=== PATIENT | male | born 1990 | race Two or more races ===

== ENCOUNTER 2019-03-12 20:07 | Emergency (ER) | payer MEDICAID ==
[~2019-03-12] VITALS: Ht 180.3 cm; Wt 65.8 kg
[~2019-03-12 20:07] MED LIST: NKM
[2019-03-12 20:20] VITALS: BP 122/54
--- NOTE | 2019-03-12 20:20 | NUR ---
ED Nurse Note: Patient brought in by [facility] c/o syncopal episde that ocured at 1930 today, patient states that he had completely passed out and fell, at time of arrival patient is alert and oriented x4 and is complaining of right sided pain but states that this is a chronic issue. no head trauma noted, states that hes had he will be getting surgery for the pain, patient sugar is 80. will wait for further orders
[2019-03-12] MEDS ORDERED: Ketorolac 60mg Inj IM ONE (21:00)
[2019-03-12] MEDS ORDERED: Methocarbamol 750mg tab ORAL ONE (21:00)
[2019-03-12] MEDS ORDERED: Dexamethasone 4mg/ml vial IM ONE (21:00)
[2019-03-12] MEDS ORDERED: Hydromorphone 0.5mg/0.5ml inj IM ONE (21:00)
[2019-03-12] MEDS ORDERED: HYDROcodone/Acetamin 5/325 tab ORAL ONE (21:00)
--- NOTE | 2019-03-12 21:15 | NUR ---
ED Nurse Note: Had to override patient's medication, 2 syringes of dilaudid were thrown away due to tabs being broken. LES Thomas witnessed.
[2019-03-12] MEDS ORDERED: Hydromorphone 0.5mg/0.5ml inj ONE (21:22)
--- NOTE | 2019-03-12 22:08 | Emergency Room Report ---
History of Present Illness General Chief Complaint: Syncope Source: Patient Present Illness HPI 28-year-old male presents with syncopal symptoms prior to arrival lasting minutes, with some quick resolution of consciousness, aggravated by pain in the back, alleviated by lying on the floor, severity was moderate lasting minutes, patient presents via EMS for evaluation he denies any head trauma Patient denies any bowel bladder retention/incontinence he states he has had chronic back pain is seeking relief. Allergies: Coded Allergies: No Known Allergies (Unverified , 03/12/19) Patient History Past Medical History: see triage record Reviewed Nursing Documentation: PMH: Agreed; PSxH: Agreed Nursing Documentation-PM Past Medical History: No History, Except For Review of Systems All Other Systems: negative except mentioned in HPI Physical Exam Vital Signs Date Time Temp Pulse Resp B/P (MAP) Pulse Ox O2 Delivery O2 Flow Rate FiO2 03/12/19 20:02 98.1 71 16 122/54 (76) 99 Room Air Sp02 EP Interpretation: reviewed, normal General Appearance: well appearing, no apparent distress, alert Head: normocephalic, atraumatic Eyes: bilateral eye PERRL, bilateral eye EOMI ENT: uvula midline, moist mucus membranes Neck: supple, thyroid normal, supple/symm/no masses Respiratory: lungs clear, no respiratory distress, no retraction, no accessory muscle use Cardiovascular #1: normal peripheral pulses, regular rate, rhythm, no edema, no gallop, no murmur Gastrointestinal: non tender, soft, no guarding, no rebound Musculoskeletal: normal inspection, other - No midline tenderness, tenderness to palpation right lower back laterally, spasm of the right muscle felt, straight leg raise positive Neurologic: alert, oriented x3 Psychiatric: mood/affect normal Skin: no rash, warm/dry Medical Decision Making Diagnostic Impression: Primary Impression: Syncope Qualified Codes: R55 - Syncope and collapse Additional Impression: Chronic back pain Qualified Codes: M54.41 - Lumbago with sciatica, right side; G89.29 - Other chronic pain ER Course 28-year-old male presents with right lower back pain most likely chronic, no red flags of back pain, patient also with vasovagal syncope secondary to the pain, The patient presents with acute onset of back pain acute on chronic. Clinically this patient can be ruled out for serious pathology given there is a completely normal neurological exam, no history of IV drug use, and no history of bowel or bladder incontinence, no perianal numbness/tingling, no constipation or urinary retention. Once the patient's pain was adequately controlled, the patient was able to ambulate and be discharged in stable condition with anticipatory guidance provided. Cures report ran. EKG Diagnostic Results EKG Time: 20:17 EP Interpretation: NSR, rate 75, QTc 431, no acute ST elevations, normal axis Last Vital Signs Date Time Temp Pulse Resp B/P (MAP) Pulse Ox O2 Delivery O2 Flow Rate FiO2 03/12/19 20:02 98.1 71 16 122/54 (76) 99 Room Air Disposition: HOME, SELF-CARE Condition: Stable Scripts Methocarbamol* (ROBAXIN-750*) 750 Mg Tablet 750 MG PO QID, #28 TAB 0 Refills Prov: Santi Abernathy MD 03/12/19 Hydrocodone Bit/Acetaminophen 5-325* (NORCO 5-325*) 1 Each Tablet 1 TAB ORAL Q6H PRN for For Pain, #12 TAB 0 Refills Prov: Santi Abernathy MD 03/12/19 Lidocaine Patch* (Lidoderm Patch*) 1 Each Adh..patch 1 PATCH TOPIC DAILY, #7 PATCH 0 Refills Patch(es) may remain in place for up to 12 hours in any 24-hour period. Prov: Santi Abernathy MD 03/12/19 Naproxen* (NAPROSYN*) 250 Mg Tablet 250 MG ORAL BID PRN for For Pain, #20 TAB 0 Refills Prov: Santi Abernathy MD 03/12/19 Referrals: [facility]ERR[facility] (PCP) [facility] Patient Instructions: Back Pain, Adult, [id number], Syncope Additional Instructions: The patient was provided with discharge instructions, notified to follow-up with a primary care doctor and or specialist in the next 24-48 hours, and to return to the ED if they have worsening of their symptoms. Please note that this report is being documented using [employer] technology. This can lead to erroneous entry secondary to incorrect interpretation by the dictating instrument. Santi Abernathy MD Mar 12, 2019 22:08
[2019-03-12] MEDS ORDERED: LIDODERM700 M1 TOPIC (22:12)
[2019-03-12] MEDS ORDERED: NAPROXEN250 MG ORAL (22:12)
[2019-03-12] MEDS ORDERED: NORCO 5-325 TA1 EACH ORAL (22:12)
[2019-03-12] MEDS ORDERED: ROBAXIN-750750 MG PO (22:12)
[2019-03-12 22:15] VITALS: BP 122/54
--- NOTE | 2019-03-12 22:15 | NUR ---
ER DISCHARGE NOTE: Patient is cleared to be discharged per ERMD, pt is aox4, on room air, with stable vital signs. pt was given dc and prescription instructions, pt was able to verbalize understanding, pt id band removed without complications. pt is able to ambulate with steady gait. pt took all belongings.
--- NOTE | 2019-03-13 14:54 | Cardiology Report ---
APPROVED REPORT EKG Measurement Heart [id number] Normal sinus rhythm with sinus arrhythmia Normal ECG
== END 2019-03-12 22:15 | disposition home or self-care (01) ==
LOC: EDBD 20:07 → EMR 20:38
DX: R55 Syncope and collapse (principal); G89.29 Other chronic pain; M54.41 Lumbago with sciatica, right side
CPT/HCPCS: 93005; 96372; J1100; J1170; Z7502; 99283